=== PATIENT | female | born 1965 | race Caucasian/White ===

== ENCOUNTER 2021-10-17 23:53 | Emergency (ER) | payer OTHER | END 2021-10-18 04:56 | disposition home or self-care (01) | LOC: FER 23:53 | DX: S49.92XA Unspecified injury of left shoulder and upper arm, initial encounter (principal); F17.200 Nicotine dependence, unspecified, uncomplicated; I10 Essential (primary) hypertension; E11.9 Type 2 diabetes mellitus without complications; J44.9 Chronic obstructive pulmonary disease, unspecified; Z28.310 Unvaccinated for COVID-19; Z88.5 Allergy status to narcotic agent; W19.XXXA Unspecified fall, initial encounter; Y92.009 Unspecified place in unspecified non-institutional (private) residence as the place of occurrence of the external cause | CPT/HCPCS: 73000; 73030; J1885 ==